=== PATIENT | female | born 1970 | race Hispanic/Latino ===

== ENCOUNTER 2018-08-10 13:39 | Outpatient (CLI) | payer BC | END 2018-08-10 13:40 | disposition home or self-care (01) | LOC: BICMAMMO 13:39 | PROVIDERS: ATTEND Advanced Practice Midwife | DX: Z12.31 Encounter for screening mammogram for malignant neoplasm of breast (principal) | CPT/HCPCS: 77063; 77067 ==

== ENCOUNTER 2021-01-13 05:31 | Emergency (ER) | payer BC ==
[2021-01-13 06:02] LABS: #Monocytes 0.4 thou/uL (0.11-0.59); #Neutrophils 4.4 thou/uL (1.40-6.50); %Basophils 0.2 % (0.0-1.0); %Eosinophils 0.2 % (0.0-10.0); %Lymphocytes 28.8 % (21.0-51.0); %Monocytes 6.6 % (0.0-10.0); %Neutrophils 64.3 % (42.0-75.0); Mean Corpuscular HGB CONC 33.8 g/dL (32.0-36.0); Mean Corpuscular Hemoglobin 30.9 pg (27.0-31.0); Mean Corpuscular Volume 91.3 fL (78.0-98.0); Mean Platelet Volume 7.1 fL (7.4-10.4); Platelet Count 249 thou/uL (130-400); Red Blood Cell (RBC) Count 3.89 mill/uL (4.20-5.40); White Blood Cell (WBC) Count 6.8 thou/uL (4.8-10.8)
[2021-01-13 06:13] LABS: BHCG - Serum Negative (NEGATIVE); Pregs Control Background? CLEAR/WHITE (CLR/WHITE); Pregs Control Bar Appear? YES (CONTROL BAR)
[2021-01-13 06:23] LABS: ALT (SGPT) 17 U/L (8-55); AST (SGOT) 17 U/L (5-34); Albumin 4.1 g/dL (3.5-5.0); Alkaline Phosphatase 68 U/L (40-110); Anion Gap 14 mmol/L (10-20); BUN (Urea Nitrogen) 11 mg/dL (7.0-18.7); Bilirubin, Total 0.5 mg/dL (0.2-1.2); Calc. Creatinine Clearance 0 mL/min (70-130); Calcium 8.9 mg/dL (7.8-10.44); Carbon Dioxide 21 mmol/L (22-29); Chloride 107 mmol/L (98-107); Globulin 3.2 g/dL (2.4-3.5); Glucose 109 mg/dL (70-105); Lipase 39 U/L (8-78); Potassium 3.6 mmol/L (3.5-5.1); Protein, Total 7.3 g/dL (6.0-8.3); Sodium 138 mmol/L (136-145)
[2021-01-13 06:46] LABS: Bilirubin Negative (Negative); Blood, Urine Negative (Negative); Clarity Clear (Clear); Glucose, Urine (Dipstick) Normal (Negative); Ketone, Urine Trace mg/dL (Negative); Leukocyte Negative Leu/uL (Negative); Nitrite Negative (Negative); Protein, Urine (Dipstick) Negative (Neg-Trace); Urobilinogen Normal mg/dL (Less than 2)
[2021-01-13] MEDS ORDERED: Mag-Al 1200 mg/1200 mg/30 ML UDCUP ONE (07:05)
[2021-01-13] MEDS ORDERED: Lidocaine Viscous Sol 2% 15 ml UD Cup ONE (07:05)
--- NOTE | 2021-01-13 07:44 | RAD ---
Portable frontal chest radiograph: 01/13/2021 COMPARISON: None HISTORY: Chest pain FINDINGS: Lungs are clear. Heart and mediastinal contours appear within normal limits. IMPRESSION: No acute findings.
== END 2021-01-13 07:15 | disposition home or self-care (01) ==
LOC: ERS 05:31
DX: R07.9 Chest pain, unspecified (principal); R10.13 Epigastric pain; Z86.16 Personal history of COVID-19
CPT/HCPCS: 36415; 71045; 80053; 81003; 83690; 84484; 84703; 85025; 93005

== ENCOUNTER 2025-10-31 09:37 | Outpatient (CLI) | payer BC | END 2025-10-31 09:38 | disposition home or self-care (01) | LOC: MRI 09:37 | PROVIDERS: ATTEND Internal Medicine Rheumatology | DX: S83.242A Other tear of medial meniscus, current injury, left knee, initial encounter (principal); S82.145A Nondisplaced bicondylar fracture of left tibia, initial encounter for closed fracture; M94.262 Chondromalacia, left knee ==